=== PATIENT | male | born 1955 | race Caucasian/White ===

== ENCOUNTER 2022-07-09 18:24 | Emergency (ER) | payer MEDICARE, OTHER, SELFPAY ==
[2022-07-09] VITALS (11 sets, daily range): BP systolic 148–169; BP diastolic 62–98; PULSE 65–94; RESP 13–20; TEMP 36.2; O2SAT 96–99
--- NOTE | ~2022-07-09 | XR_ITS ---
EXAMINATION: XR chest 2V DATE: 07/09/2022 18:59 INDICATION: Palpitations. TECHNIQUE: Frontal and lateral views of the chest were obtained. COMPARISON: Chest single view 08/31/2019 FINDINGS: There is no pneumonia, pleural effusion, or pneumothorax. The heart size is normal. There i s a screw in right scapula. There is mild chronic height loss of multiple vertebral bodies. IMPRESSION: 1. No acute cardiopulmonary disease. Reviewed, dictated and finalized at location A.
--- NOTE | 2022-07-09 18:30 | ECG_ITS ---
Measurements Intervals [place] Rate: 94 P: IN: 0 QRS: 30 QRSD: 103 T: 20 QT: 333 QTc: 417 Interpretive Statements ATRIAL FIBRILLATION WITH ABERRANT CONDUCTION OR VENTRICULAR PREMATURE COMPLEXES ABNORMAL RHYTHM ECG NO PREVIOUS ECG AVAILABLE FOR COMPARISON Electronically Signed On 07-10-2022 9:35:00 CDT by Chris Arana M.D.
[2022-07-09 18:57] LABS: Basophils Percent Auto 0.5 % (0.2-1.2); Eosinophils Absolute Auto 0.1 K/mm3 (0-0.3); Eosinophils Percent Auto 0.9 % (0-4.4); Hematocrit 48.1 % (42.0-52.0); Hemoglobin 16.4 g/dL (14.0-18.0); Immature Granulocyte Absolute 0.05 K/mm3 (0.00-0.031); Immature Granulocyte Percent A 0.6 % (0-0.5); Lymphocytes Absolute Auto 1.47 K/mm3 (0.9-3.2); Lymphocytes Percent Auto 18.9 % (18.3-44.2); Mean Corpuscular HGB Conc 34.1 g/dl (32-36); Mean Corpuscular Hemoglobin 32.5 pg (26-34); Mean Corpuscular Volume 95.2 fl (80-100); Mean Platelet Volume 10.1 fl (7.4-10.4); Monocytes Absolute Auto 0.6 K/mm3 (0.1-0.6); Neutrophils Absolute Auto 5.5 K/mm3 (1.3-6.7); Neutrophils Percent Auto 71.1 % (45.5-73.1); Platelet Count Result 180 k/mm3 (150-375); Red Blood Count 5.05 M/mm3 (4.6-6.20); Red Cell Distribution Width 13.2 % (11.5-14.5); White Blood Count 7.8 K/mm3 (4.5-10.0)
[2022-07-09 19:10] LABS: INR 1.1; Partial Thromboplastin Time 28.6 SECONDS (22.3-36.8); Prothrombin Time 14.1 Seconds (11.1-14.7)
[2022-07-09 19:15] LABS: Alanine Aminotransferase 19 U/L (6-50); Albumin Level 4.3 g/dL (3.5-5.1); Alkaline Phosphatase 68 U/L (38-126); Anion Gap 9 mmol/L (8-16); Aspartate Amino Transferase 30 U/L (17-59); Bilirubin,Total 0.4 mg/dL (0.2-1.3); Blood Urea Nitrogen 23 mg/dL (9-20); Calcium 9.8 mg/dL (8.4-10.2); Carbon Dioxide 27 mmol/L (22-30); Chloride 105 mmol/L (98-107); Estimated CRCL calculation 64 ml/min; Estimated Glomerular Filt Rate 55; Glucose 100 mg/dL (65-110); Lipase 69 U/L (23-300); Potassium 4.4 mmol/L (3.4-5.0); Sodium 141 mmol/L (137-145)
--- NOTE | 2022-07-09 19:28 | ED.ARRPALP ---
HPI - Arrhythmia/Palpitations General Chief Complaint: Arrhythmia/Palpitations Stated Complaint: palpitations Time Seen by Provider: 07/09/22 18:40 Source: patient and RN notes reviewed Mode of arrival: ambulatory Limitations: no limitations History of Present Illness HPI narrative: This is a 66 year old male who presents for evaluation of abnormal heart rate. Patient states wears a monitor while he goes cycling. He states his heart rate is normally 120s when he cycles but over the past 1 week he noticed that his heart rate on monitor elevates to 170s. He states when he checks his carotid pulse at night, he feels heart beat irregular. He denies associated dizziness, chest pain, sob. He states he feels increased anxiousness. He states this started when he returned from a trip to [place]. He denies history of any medical problems or arrhythmia MD complaint: skipped beats Onset (ago): week(s) (1) Related Data Allergies Allergy/AdvReac Type Severity Reaction Status Date / Time No Known Allergies Allergy Mild Verified 07/09/22 18:38 Review of Systems Review of Systems: All systems reviewed & are unremarkable except as noted in HPI and below Constitutional: Constitutional: Denies chills, Denies fatigue and Denies fever(s) ENT: Denies nasal congestion and Denies sore throat Cardiovascular: Cardiovascular: Denies chest pain, Reports rapid heart rate and Denies radiating jaw, neck or arm pain Respiratory: Respiratory: Denies chest congestion, Denies cough and Denies dyspnea Gastrointestinal: Gastrointestinal: Denies abdominal pain, Denies bloating, Denies nausea and Denies vomiting PMFSH Social History Social History (Updated 07/09/22 @ 19:40 by Alejandra Schofield MD) Smoking status: Former smoker Alcohol intake: never Substance use: never Exam Const: General: no acute distress and alert Nutritional Appearance: well nourished Orientation/consciousness: patient oriented x3 Limitations: no limitations HENMT: Head: normal to inspection Eyes: EOM: EOMs intact bilaterally Chest: Chest palpation & inspection: normal inspection of the chest Resp: Effort & Inspection: normal respiratory effort Auscultation: clear to auscultation bilaterally Cardio: Rate: regular rate Rhythm: regular rhythm Heart sounds: no murmurs GI: GI Palp: Yes Soft to palpation, No Tenderness to palpation present (GI) and No Guarding due to palpation present (GI) Auscultation: normal bowel sounds Back/Spine/Pelvis: Back: no CVA tenderness Skin: General skin exam: normal color Rashes: no rashes Wounds: no wounds Neuro: General: patient oriented x3, moves all extremities and CN's II-XI intact bilaterally Cranial nerves: Yes Nystagmus not present Speech: normal speech Gait exam (Neuro): Normal gait present Course Reevaluation(s) Reevaluation #1: Patient does not have any medical problems. He seems rate control with paroxsymal afib. Will start on metoprolol and full strength aspirin. I Discussed case with Dr. Guajardo of cardiology. He states patient to call office tomorrow morning for follow up Vital Signs Vital signs: Vital Signs Temperature 97.2 F L 07/09/22 18:32 Pulse Rate 86 07/09/22 18:32 Respiratory Rate 17 07/09/22 18:32 Blood Pressure 169/98 H 07/09/22 18:32 Pulse Oximetry 98 07/09/22 18:32 Temperature 97.2 F L 07/09/22 18:32 Pulse Rate 78 07/09/22 21:32 Respiratory Rate 18 07/09/22 21:32 Blood Pressure 148/62 H 07/09/22 21:32 Pulse Oximetry 99 07/09/22 21:32 MDM - Arrhythmia/Palpitations Medical Records Attestation: I reviewed the patient's medical records. Lab Data Attestation: I reviewed the patient's lab results. Result diagrams: 07/09/22 18:39 07/09/22 18:39 Labs: Lab Results 07/09/22 07/09/22 07/09/22 Range/Units 18:38 18:38 18:39 WBC 7.8 (4.5-10.0) K/mm3 RBC 5.05 (4.6-6.20) M/mm3 Hgb 16.4 (14.0-18.0) g/
[2022-07-09] MEDS: SODIUM CHLORIDE 0.9% IV 1,000 ML 999 ML IV CONT (19:36)
[2022-07-09 19:44] LABS: D Dimer 0.33 ug/mL (<0.48)
[2022-07-09 19:53] LABS: Magnesium 2.3 mg/dL (1.6-2.3)
[2022-07-09] MEDS: METOPROLOL TARTRATE INJ 5 MG/5 ML VIAL IV PUSH (20:03)
[2022-07-09] MEDS: METOPROLOL TARTRATE 50 MG TAB 25 MG PO (21:09)
== END 2022-07-09 21:34 | disposition home or self-care (01) ==
PROVIDERS: Emergency Medicine; Emergency Provider General Practice
DX: I48.91 Unspecified atrial fibrillation (principal); Z87.891 Personal history of nicotine dependence
CPT/HCPCS: 36415; 71046; 80053; 83690; 83735; 84443; 84484; 85025; 85380; 85610; 85730; 93005; 96361; 96374; 99284; A9270; J7030